=== PATIENT | male | born 1970 | race African-American/Black ===

== ENCOUNTER 2024-06-18 06:55 | Day surgery (SDC) | payer OTHER ==
[~2024-06-18] VITALS: Ht 188 cm; Wt 127.0 kg
[~2024-06-18 06:55] MED LIST: ATOR20TA PO; LISI20TA29 PO
[2024-06-18] MEDS ORDERED: fentaNYL citrate 0.05 MG/ML VIAL ONE (07:48)
[2024-06-18] MEDS ORDERED: LIDOCAINE 2% 100 MG/5 ML UJET TP ONE (07:48)
[2024-06-18] MEDS ORDERED: KETOROLAC 30 MG/ML VIAL ONE (07:50)
[2024-06-18] MEDS ORDERED: LABETALOL 20 MG/4 ML VIAL IVP ONE (08:50)
[2024-06-18] MEDS: KETOROLAC 30 MG/ML VIAL IVP ONE (08:54)
[2024-06-18] MEDS: LABETALOL 20 MG/4 ML VIAL IVP ONE (08:58)
== END 2024-06-18 09:58 | disposition home or self-care (01) ==
LOC: MOR 06:55 → MMU 06:55 → MOR 09:58
PROVIDERS: ATTEND Internal Medicine Gastroenterology
DX: Z12.11 Encounter for screening for malignant neoplasm of colon (principal); K63.5 Polyp of colon; K57.30 Diverticulosis of large intestine without perforation or abscess without bleeding; I10 Essential (primary) hypertension; E11.9 Type 2 diabetes mellitus without complications; Z79.899 Other long term (current) drug therapy; Z98.890 Other specified postprocedural states
CPT/HCPCS: 45385; 82948; J1885; J3490; J3010